=== PATIENT | male | born 2000 | race Two or more races ===

== ENCOUNTER 2025-01-25 02:14 | Emergency (ER) | payer OTHER ==
[~2025-01-25] VITALS: Ht 167.6 cm; Wt 80.7 kg
[2025-01-25] MEDS ORDERED: FLUORESCEIN SODIUM OPHTH 1 EA STRIP ONE (02:38)
[2025-01-25] MEDS ORDERED: TETRAcaine 5 ML BOTTLE ONE (02:38)
[2025-01-25] MEDS: FLUORESCEIN SODIUM OPHTH 1 EA STRIP OP ONE (03:07)
[2025-01-25] MEDS: TETRACAINE HCL 0.5% OPHTALMIC 15 ML BOTTLE OP ONE (03:07)
[2025-01-25] MEDS ORDERED: TOBR5DRO36 RIGHTEYE (03:21)
[2025-01-25 03:29] VITALS: BP 124/76; TEMP 98.4; O2SAT 98
== END 2025-01-25 03:29 | disposition home or self-care (01) ==
LOC: ER 02:16
DX: S05.01XA Injury of conjunctiva and corneal abrasion without foreign body, right eye, initial encounter (principal); X58.XXXA Exposure to other specified factors, initial encounter; Y93.89 Activity, other specified; Y92.89 Other specified places as the place of occurrence of the external cause; Y99.8 Other external cause status

== ENCOUNTER 2025-02-02 23:35 | Emergency (ER) | payer OTHER ==
[~2025-02-02] VITALS: Ht 162.6 cm; Wt 77.6 kg
[~2025-02-02 23:35] MED LIST: TOBR5DRO36 RIGHTEYE
[2025-02-03 00:47] VITALS: BP 141/96; TEMP 98.6; O2SAT 98
[2025-02-03] MEDS ORDERED: CIPR10DR RIGHT EAR (00:49)
== END 2025-02-03 01:30 | disposition home or self-care (01) ==
LOC: ER 23:41
DX: H60.91 Unspecified otitis externa, right ear (principal)